=== PATIENT | female | born 1995 | race Caucasian/White ===

== ENCOUNTER 2016-06-15 18:56 | Emergency (ER) | payer SELFPAY ==
[~2016-06-15] VITALS: Ht 162.6 cm; Wt 74.8 kg
[2016-06-15 19:28] VITALS: BP 119/60
[2016-06-15] MEDS ORDERED: NACL 0.9% 500 ML IV ONE ×3 (20:04→23:12)
[2016-06-15] MEDS ORDERED: KETOROLAC 30 MG/ML VIAL IVP ONE ×2 (20:05→23:15)
[2016-06-15] MEDS ORDERED: ONDANSETRON 4 MG/2 ML VIAL IVP ONE ×2 (20:05→23:15)
--- NOTE | 2016-06-15 23:00 | NUR ---
PATIENT PRESENTS TO ED WITH RIGHT FLANK PAIN X 7 DAYS . PT DENIES N/V/D; SKIN IS PINK/WARM/DRY; AAOX4 WITH EVEN AND STEADY GAIT; LUNGS CLEAR BL; HR EVEN AND REGULAR; PT DENIES ANY FEVER, CP, SOB, OR COUGH AT THIS TIME; PATIENT STATES PAIN OF 8/10 AT THIS TIME; VSS; PATIENT POSITIONED FOR COMFORT; HOB ELEVATED; BEDRAILS UP X2; BED DOWN. ER MD MADE AWARE OF PT STATUS.
--- NOTE | 2016-06-15 23:00 | NUR ---
TO ER BED 8
[2016-06-15] MEDS ORDERED: KETOROLAC 30 MG/ML VIAL ONE (23:24)
[2016-06-15] MEDS ORDERED: ONDANSETRON 4 MG/2 ML VIAL ONE (23:25)
[2016-06-15 23:44] LABS: HEMATOCRIT 33.7 % (36-48); HEMOGLOBIN 11.4 g/dL (12.0-16.0); RED BLOOD CELL COUNT(AUTO) 3.99 MIL/uL (4.20-5.40); WHITE BLOOD COUNT (AUTO) 13.1 K/uL (4.5-11.0)
[2016-06-15 23:45] LABS: MEAN CORPUSCULAR HEMOGLOBIN 29 pg (27-31); MEAN CORPUSCULAR HGB CONC 34 g/dL (33-37); MEAN CORPUSCULAR VOLUME 85 fL (80-94); PLATELET COUNT (AUTO) 163 K/uL (140-450); RED CELL DISTRIBUTION WIDTH 12.5 % (11.6-13.7)
--- NOTE | 2016-06-15 23:45 | NUR ---
Patient being evaluated by physician DR DUKES at bedside.
[2016-06-15 23:46] LABS: BAND % (MANUAL) 30 % (0-8); LYMPHOCYTES % (MANUAL) 10 % (20-46); MONOCYTES % (MANUAL) 5 % (5-12); NEUTROPHILS % (MANUAL) 55 (43-65)
[2016-06-15 23:47] LABS: ANION GAP 13.3 (8-16); CALCIUM 8.5 mg/dL (8.5-10.1); CREATININE 0.8 mg/dL (0.6-1.3); POTASSIUM 3.3 mmol/L (3.5-5.1)
[2016-06-15 23:51] LABS: TOTAL BILIRUBIN 1.7 mg/dL (0.0-1.0)
[2016-06-15 23:52] LABS: TOTAL PROTEIN, SERUM 7.1 g/dL (6.4-8.2)
[2016-06-15 23:54] LABS: INR 1.2 (0.8-1.2); PARTIAL THROMBOPLASTIN TIME 34.6 secs (22-35.6); PROTHROMBIN TIME 10.9 secs (10.8-13.4)
[2016-06-16] MEDS ORDERED: LEVOFLOXACIN 750 MG TAB PO ONE
[2016-06-16 00:48] VITALS: BP 127/65
--- NOTE | 2016-06-16 00:48 | NUR ---
Patient discharged with v/s stable. Written and verbal after care instructions given and explained. Patient alert, oriented and verbalized understanding of instructions. Ambulatory with steady gait. All questions addressed prior to discharge. ID band removed. Patient advised to follow up with PMD. Rx of Macrobid, Motrin, Zofran given. Patient educated on indication of medication including possible reaction and side effects. Opportunity to ask questions provided and answered.
== END 2016-06-16 00:48 | disposition home or self-care (01) ==
LOC: MED 18:56
DX: N12 Tubulo-interstitial nephritis, not specified as acute or chronic (principal)
CPT/HCPCS: 36415; 74176; 80053; 81025; 85025; 85610; 85730; 96361; 96374; 96375; 99285; J1885; J2405; J7030; 81002

== ENCOUNTER 2018-05-12 16:19 | Emergency (ER) | payer SELFPAY ==
[~2018-05-12] VITALS: Ht 165.1 cm; Wt 63.5 kg
[2018-05-12 16:26] VITALS: BP 111/76
--- NOTE | 2018-05-12 16:48 | NUR ---
BIB SELF W/ C/O CONTINUOUSLY BLEEDING LACERATION TO TOP OF 3RD DIGIT ON R HAND. STATES SHE WAS CARRYING A PILE OF CLOTHES AND HAD HER USED SHAVING RAZOR WRAPPED UP WITH THEM AND IT CUT HER. DATE OF LAST TETNUS UNKNOWN.
[2018-05-12] MEDS ORDERED: IBUPROFEN 800 MG TAB PO ONE (16:55)
[2018-05-12] MEDS ORDERED: SILVER NITRATE APPLICATOR 1 EA SWAB TP ONE ×2 (17:00→17:07)
--- NOTE | 2018-05-12 17:16 | NUR ---
instructed pt to keep rue elevated above heart level to minimized sanguinesous drainage and throbbing pain---
[2018-05-12 17:24] VITALS: BP 110/75
== END 2018-05-12 17:17 | disposition home or self-care (01) ==
LOC: MED 16:19
DX: S61.212A Laceration without foreign body of right middle finger without damage to nail, initial encounter (principal); W26.8XXA Contact with other sharp object(s), not elsewhere classified, initial encounter; Y93.89 Activity, other specified; Y92.89 Other specified places as the place of occurrence of the external cause; Y99.8 Other external cause status
CPT/HCPCS: 90471; 90715; 99283

== ENCOUNTER 2018-12-18 21:31 | Emergency (ER) | payer MEDICAID ==
[~2018-12-18] VITALS: Ht 162.6 cm; Wt 69.2 kg
[2018-12-18 21:52] VITALS: BP 112/69
[2018-12-18] MEDS ORDERED: NACL 0.9% 1,000 ML IV ONE (22:19)
[2018-12-18] MEDS ORDERED: DICYCLOMINE 20 MG/2 ML VIAL IM ONE (22:20)
[2018-12-18] MEDS ORDERED: KETOROLAC 30 MG/ML VIAL IVP ONE (22:20)
[2018-12-18] MEDS ORDERED: ONDANSETRON 4 MG/2 ML VIAL IVP ONE (22:20)
--- NOTE | 2018-12-18 22:20 | NUR ---
23/F PRESENTED TO ED WITH C/O NVD SINCE LAST NIGHT. PT STATES "I THINK I HAVE FOOD POISONING". LAST MEAL WAS FISH AND SALAD. ALSO C/O 12/06 CRAMPING DIFFUSE ABDOMINAL PAIN. PT STATES SHE CANNOT KEEP ANY FOOD/LIQUID DOWN. ALSO REPORTS "SEEING PINK" ON TOILET PAPER AFTER WIPING X TODAY. ALSO C/O PAINFUL URINATION X TODAY. PT REPORTS DIARRHEA. HYPERACTIVE BOWEL SOUNDS HEARD. ABD SOFT NON TENDER. DENIES TAKING MEDS PRIOR TO ARRIVING TO ED. VSS. WILL CONTINUE TO MONITOR. PMH-- DENIES RX-- DENIES
[2018-12-18 22:50] LABS: BASOPHILS % (AUTO) 0.1 % (0.0-2.0); EOSINOPHILS # (AUTO) 0.1 K/uL (0-0.4); EOSINOPHILS % (AUTO) 0.9 % (0.0-4.0); HEMATOCRIT 39.6 % (36-48); HEMOGLOBIN 12.7 g/dL (12.0-16.0); LYMPHOCYTES % (AUTO) 10.7 % (20.5-51.1); MEAN CORPUSCULAR HEMOGLOBIN 27 pg (27-31); MEAN CORPUSCULAR HGB CONC 32 g/dL (33-37); MEAN CORPUSCULAR VOLUME 82.2 fL (80-94); MONOCYTES # (AUTO) 0.5 K/uL (0.8-1.0); MONOCYTES % (AUTO) 5.4 % (1.7-9.3); NEUTROPHILS % (AUTO) 82.9 % (42.2-75.2); PLATELET COUNT (AUTO) 305 K/uL (140-450); RED BLOOD CELL COUNT(AUTO) 4.82 MIL/uL (4.20-5.40); RED CELL DISTRIBUTION WIDTH 14.6 % (11.6-13.7); WHITE BLOOD COUNT (AUTO) 9.6 K/uL (4.8-10.8)
--- NOTE | 2018-12-18 23:00 | NUR ---
IV ESTABLISHED. TOLERATED WELL. PATENT AND INTACT. FLUIDS INFUSING AT THIS TIME.
[2018-12-18 23:09] LABS: ALBUMIN 4.3 g/dL (3.4-5.0); ANION GAP 16.1 (8-16); CARBON DIOXIDE 24.7 mmol/L (21-32); CREATININE 0.7 mg/dL (0.6-1.3); POTASSIUM 3.8 mmol/L (3.5-5.1)
[2018-12-18 23:53] VITALS: BP 106/63
--- NOTE | 2018-12-18 23:53 | NUR ---
Patient discharged with v/s stable. Written and verbal after care instructions given and explained. Patient alert, oriented and verbalized understanding of instructions. Ambulatory with steady gait. All questions addressed prior to discharge. ID band removed. Patient advised to follow up with PMD. Rx of JAYDEN COREA given. Patient educated on indication of medication including possible reaction and side effects. Opportunity to ask questions provided and answered.
== END 2018-12-18 23:53 | disposition home or self-care (01) ==
LOC: MED 21:31
DX: R11.2 Nausea with vomiting, unspecified (principal); R19.7 Diarrhea, unspecified; R10.10 Upper abdominal pain, unspecified
CPT/HCPCS: 36415; 80053; 81002; 81025; 83690; 85025; 96361; 96372; 96374; 96375; 99283; J0500; J1885; J2405; J7030

== ENCOUNTER 2019-04-19 21:08 | Emergency (ER) | payer MEDICAID ==
[~2019-04-19] VITALS: Ht 162.6 cm; Wt 69.9 kg
[2019-04-19 21:35] VITALS: BP 113/68
--- NOTE | 2019-04-19 21:35 | NUR ---
TO [facility] AMBULATORY
--- NOTE | 2019-04-19 22:01 | NUR ---
C/O SUPRAPUBIC PAIN CRAMPING RADIATING EPIGASTRIC PAIN RADIATING BACK WITH NAUSEA / EMESIS----DENIES DYSURIA
[2019-04-19 23:09] VITALS: BP 112/75
--- NOTE | 2019-04-19 23:09 | NUR ---
Patient discharged with v/s stable. Written and verbal after care instructions given and explained. Patient alert, oriented and verbalized understanding of instructions. Ambulatory with steady gait. All questions addressed prior to discharge. ID band removed. Patient advised to follow up with PMD. Rx of Keflex and Tylenol given. Patient educated on indication of medication including possible reaction and side effects. Opportunity to ask questions provided and answered.
== END 2019-04-19 23:09 | disposition home or self-care (01) ==
LOC: MED 21:08
DX: O23.41 Unspecified infection of urinary tract in pregnancy, first trimester (principal); Z3A.13 13 weeks gestation of pregnancy
CPT/HCPCS: 81002; 81025; 99284

== ENCOUNTER 2019-05-02 21:32 | Emergency (ER) | payer MEDICAID, OTHER ==
[~2019-05-02] VITALS: Ht 162.6 cm; Wt 69.9 kg
[2019-05-02 21:35] VITALS: BP 123/78
--- NOTE | 2019-05-02 21:38 | NUR ---
TO [facility] A/W BED AMBULATORY
--- NOTE | 2019-05-02 22:48 | NUR ---
PATIENT AMB TO [facility]
--- NOTE | 2019-05-02 23:37 | NUR ---
PATIENT SEEN AND DC BY DR. DE LOS SANTOS. NO NURSING CARE RENDERED.
[2019-05-02 23:39] VITALS: BP 123/78
== END 2019-05-02 23:37 | disposition home or self-care (01) ==
LOC: MED 21:32
DX: H66.91 Otitis media, unspecified, right ear (principal)
CPT/HCPCS: 99283

== ENCOUNTER 2019-10-13 03:37 | Emergency (ER) | payer OTHER ==
[~2019-10-13] VITALS: Ht 162.6 cm; Wt 81.6 kg
[2019-10-13 03:37] VITALS: BP 119/73
[~2019-10-13 03:37] MED LIST: NITR100C7 PO
--- NOTE | 2019-10-13 03:44 | NUR ---
PT AMBULATED TO BED 4 WITH STEADY GAIT
--- NOTE | 2019-10-13 03:45 | NUR ---
PT 23 Y/O FEMALE BIB SELF FOR C/O TOOTH ACHE X 1 MONTH. PER PT TOOTH PAIN 10/10 AND IS ON R LOWER BACK MOLARS X 1 MONTH. PER PT UNABLE TO RECIVE TX FOR TOOTH PAIN D/T BEING 38 WEEKS. PREGNENT. NO SKIN BREAK DOWN, REDNESS, OR PURLUENT DRAINGE/PUS NOTED IN GUMS. PT SENSITIVE TO TOUCH IN R LOWER BACK MOLARS. PT STATES SHE HAS BEEN PRESCRIBED PCN AND BEEING TAKING IT PROPHYLACTIC X 2 DAYS. PT HAS NO COMPLICATIONS WITH AT THIS TIME. MEDHX: NONE ALLEGIES: PAULA
[2019-10-13] MEDS ORDERED: LIDOCAINE 2% 1000 MG/50 ML VIAL INJ ONE (04:00)
--- NOTE | 2019-10-13 04:26 | NUR ---
ERMD AT BEDSIDE, INJECTED LIDOCAINE INTO GUMS.
--- NOTE | 2019-10-13 04:30 | NUR ---
PT AMBUALTED TO RESTROOM WITH STEADY GAIT.
--- NOTE | 2019-10-13 04:36 | NUR ---
PT RETURNED TO BED WITH STEADY GAIT.
--- NOTE | 2019-10-13 04:38 | NUR ---
PT STATES TOOTH ACHE PAIN DECREASED FROM 10/10 TO 2/10 AND, "IS TOLERABLE."
[2019-10-13 04:40] VITALS: BP 118/68
--- NOTE | 2019-10-13 04:40 | NUR ---
Patient discharged with v/s stable. Written and verbal after care instructions given and explained. Patient verbalized understanding. Ambulatory with steady gait. All questions addressed prior to discharge. Advised to follow up with PMD.
== END 2019-10-13 04:40 | disposition home or self-care (01) ==
LOC: MED 03:37
DX: K02.9 Dental caries, unspecified (principal); Z79.899 Other long term (current) drug therapy
CPT/HCPCS: 64400; 99284; J2001

== ENCOUNTER 2019-12-15 21:37 | Emergency (ER) | payer OTHER ==
[~2019-12-15] VITALS: Ht 162.6 cm; Wt 74.8 kg
[2019-12-15 21:45] VITALS: BP 119/66
[2019-12-15] MEDS ORDERED: KETOROLAC 60 MG/2 ML VIAL IM ONE (21:55)
[2019-12-15 22:42] VITALS: BP 118/70
== END 2019-12-15 22:42 | disposition home or self-care (01) ==
LOC: MED 21:37
DX: R07.89 Other chest pain (principal); Z79.899 Other long term (current) drug therapy
CPT/HCPCS: 81002; 81025; 93005; 96372; 99283; J1885

== ENCOUNTER 2020-04-14 00:30 | Emergency (ER) | payer OTHER ==
[~2020-04-14] VITALS: Ht 152.4 cm; Wt 78.0 kg
[2020-04-14 00:40] VITALS: BP 126/85
--- NOTE | 2020-04-14 00:51 | NUR ---
PT AMBULATED TO LOBBY TO A/W BED. URINE SPECIMEN PROVIDED.
--- NOTE | 2020-04-14 01:30 | NUR ---
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 BED IS LOCKED AND IN LOWEST POSITION. SIDE RAILSX1. NO ACUTE DISTRESS NOTED. CALL LIGHT WITHIN REACH.
--- NOTE | 2020-04-14 02:00 | NUR ---
PT TAKEN ULTRASOUND VIA W/C
--- NOTE | 2020-04-14 02:00 | NUR ---
Lashonda thompson in [facility] - 04/14/20 at 0216 by MELANY PT TAKEN TO ULTRASOUND
[2020-04-14 02:08] LABS: BASOPHILS # (AUTO) 0.1 K/uL (0.00-0.22); BASOPHILS % (AUTO) 1.7 % (0.0-2.0); EOSINOPHILS # (AUTO) 0.3 K/uL (0-0.4); EOSINOPHILS % (AUTO) 3.6 % (0.0-4.0); HEMATOCRIT 36.8 % (36-48); LYMPHOCYTES # (AUTO) 1.9 K/uL (2.5-16.5); LYMPHOCYTES % (AUTO) 22.2 % (20.5-51.1); MEAN CORPUSCULAR HEMOGLOBIN 26 pg (27-31); MEAN CORPUSCULAR HGB CONC 33 g/dL (33-37); MEAN CORPUSCULAR VOLUME 79.4 fL (80-94); MONOCYTES # (AUTO) 0.6 K/uL (0.8-1.0); MONOCYTES % (AUTO) 7.3 % (1.7-9.3); NEUTROPHILS # (AUTO) 5.6 K/uL (1.8-7.7); NEUTROPHILS % (AUTO) 65.2 % (42.2-75.2); PLATELET COUNT (AUTO) 314 K/uL (140-450); RED BLOOD CELL COUNT(AUTO) 4.64 MIL/uL (4.20-5.40); RED CELL DISTRIBUTION WIDTH 14.8 % (11.6-13.7); WHITE BLOOD COUNT (AUTO) 8.7 K/uL (4.8-10.8)
--- NOTE | 2020-04-14 02:16 | NUR ---
COVERING PRIMARY RN FOR LUNCH RELIEF. SEE COMPLETE ASSESSMENT FOR ADDITIONAL INFORMATION
--- NOTE | 2020-04-14 02:16 | NUR ---
PT RETURN FROM ULTRASOUND TO ER BED 1
[2020-04-14 02:18] LABS: APPEARANCE,URINE CLOUDY (CLEAR); BILIRUBIN,URINE NEGATIVE (NEGATIVE); BLOOD, URINE 3+ (NEGATIVE); COLOR,URINE RED (YELLOW); LEUKOCYTE ESTERASE ,URINE NEGATIVE (NEGATIVE); NITRITE, URINE NEGATIVE (NEGATIVE); UGLUCOSE NEGATIVE (NEGATIVE)
[2020-04-14 02:28] LABS: RBC,URINE TOO NUMEROUS TO COUN /HPF (0-5); WBC,URINE 0-5 /HPF (0-5)
[2020-04-14 02:30] LABS: PROTHROMBIN TIME 9.6 secs (10.8-13.4)
[2020-04-14 03:30] VITALS: BP 129/87
--- NOTE | 2020-04-14 03:45 | NUR ---
Pelvic exam performed by DR GARCIA with EBONIE LORENZO at bedside for entire examination. Patient tolerated procedure WELL. Patient assisted to position of comfort after examination.
--- NOTE | 2020-04-14 03:45 | NUR ---
Dr. Butcher examining patient.
--- NOTE | 2020-04-14 03:55 | NUR ---
WET MOUNT COLLECTED AND GIVEN TO TITLE INSPECTOR
[2020-04-14] MEDS ORDERED: HYDROcodone/APAP 5/325 MG 1 TAB TAB PO ONE (04:05)
--- NOTE | 2020-04-14 05:13 | NUR ---
Patient discharged with v/s stable. Written and verbal after care instructions given and explained. Patient alert, oriented and verbalized understanding of instructions. Ambulatory with steady gait. All questions addressed prior to discharge. ID band removed. Patient advised to follow up with PMD. Rx of ZOFRAN AND FLAGYL given. Patient educated on indication of medication including possible reaction and side effects. Opportunity to ask questions provided and answered.
== END 2020-04-14 05:13 | disposition home or self-care (01) ==
LOC: MED 00:30
DX: O03.9 Complete or unspecified spontaneous abortion without complication (principal); Z79.899 Other long term (current) drug therapy
CPT/HCPCS: 36415; 76830; 81001; 84702; 85025; 85610; 85730; 86900; 86901; 87210; 99284

== ENCOUNTER 2020-06-13 20:27 | Emergency (ER) | payer OTHER ==
[~2020-06-13] VITALS: Ht 162.6 cm; Wt 76.2 kg
[2020-06-13 20:35] VITALS: BP 129/79
[2020-06-13] MEDS ORDERED: NACL 0.9% 1,000 ML IV SCH (22:00)
[2020-06-13] MEDS ORDERED: ONDANSETRON 4 MG/2 ML VIAL IVP ONE (22:00)
[2020-06-13 22:22] LABS: BASOPHILS # (AUTO) 0.1 K/uL (0.00-0.22); EOSINOPHILS # (AUTO) 0.4 K/uL (0-0.4); EOSINOPHILS % (AUTO) 4.1 % (0.0-4.0); HEMATOCRIT 36.1 % (36-48); HEMOGLOBIN 11.9 g/dL (12.0-16.0); LYMPHOCYTES # (AUTO) 2.5 K/uL (2.5-16.5); LYMPHOCYTES % (AUTO) 26.3 % (20.5-51.1); MEAN CORPUSCULAR HEMOGLOBIN 26 pg (27-31); MEAN CORPUSCULAR HGB CONC 33 g/dL (33-37); MEAN CORPUSCULAR VOLUME 77.9 fL (80-94); MONOCYTES # (AUTO) 0.8 K/uL (0.8-1.0); MONOCYTES % (AUTO) 8.6 % (1.7-9.3); NEUTROPHILS # (AUTO) 5.7 K/uL (1.8-7.7); PLATELET COUNT (AUTO) 314 K/uL (140-450); RED BLOOD CELL COUNT(AUTO) 4.64 MIL/uL (4.20-5.40); RED CELL DISTRIBUTION WIDTH 14.7 % (11.6-13.7); WHITE BLOOD COUNT (AUTO) 9.5 K/uL (4.8-10.8)
[2020-06-13 22:37] LABS: ALBUMIN 4.3 g/dL (3.4-5.0); ANION GAP 11.3 (8-16); CARBON DIOXIDE 26.6 mmol/L (21-32); CREATININE 0.7 mg/dL (0.6-1.3); POTASSIUM 3.9 mmol/L (3.5-5.1); TOTAL BILIRUBIN 0.2 mg/dL (0.0-1.0)
[2020-06-13] MEDS ORDERED: HYDROcodone/APAP 5/325 MG 1 TAB TAB PO ONE (23:15)
[2020-06-13 23:37] LABS: APPEARANCE,URINE CLEAR (CLEAR); BILIRUBIN,URINE NEGATIVE (NEGATIVE); BLOOD, URINE NEGATIVE (NEGATIVE); COLOR,URINE YELLOW (YELLOW); LEUKOCYTE ESTERASE ,URINE NEGATIVE (NEGATIVE); NITRITE, URINE NEGATIVE (NEGATIVE); PH,URINE 6.5 (5.0-9.0); UGLUCOSE NEGATIVE (NEGATIVE)
[2020-06-14] MEDS ORDERED: ONDA-24 SL (00:22)
[2020-06-14] MEDS ORDERED: DOCU-299 PO (00:28)
[2020-06-14] MEDS ORDERED: HYDR-5080 PO (00:28)
[2020-06-14 00:48] VITALS: BP 120/77
== END 2020-06-14 00:48 | disposition home or self-care (01) ==
LOC: MED 20:27
DX: R55 Syncope and collapse (principal); R11.2 Nausea with vomiting, unspecified; Z79.899 Other long term (current) drug therapy
CPT/HCPCS: 36415; 71045; 80053; 81003; 82550; 83690; 84484; 84702; 85025; 93005; 96361; 96374; 99285; J2405; J7030

== ENCOUNTER 2020-06-30 14:45 | Emergency (ER) | payer OTHER ==
[~2020-06-30 14:45] MED LIST changes: +DOCU-299 PO; +HYDR-5080 PO; +ONDA-24 SL
--- NOTE | 2020-06-30 15:37 | NUR ---
PATIENT LEFT WITHOUT BEING SEEN BY DR. PATINO. NO FURTHER CARE PROVIDED FOR PATIENT.
== END 2020-06-30 15:37 | disposition left against medical advice (07) ==
LOC: MED 14:45
DX: K13.79 Other lesions of oral mucosa (principal); Z53.21 Procedure and treatment not carried out due to patient leaving prior to being seen by health care provider

== ENCOUNTER 2021-04-28 18:52 | Emergency (ER) | payer OTHER ==
[~2021-04-28] VITALS: Ht 162.6 cm; Wt 81.6 kg
[~2021-04-28 18:52] MED LIST changes: +ONDA-188 SL; -ONDA-24 SL
[2021-04-28 19:37] VITALS: BP 124/65
--- NOTE | 2021-04-28 22:00 | NUR ---
Assumed patient care, here for fever. Pt examined from lobby by ED MD. No orders given
--- NOTE | 2021-04-28 23:00 | NUR ---
Cleared for dc with Dr. Bess, instructions reinforced. VS stable at this time
== END 2021-04-28 22:15 | disposition home or self-care (01) ==
LOC: MED 18:52
DX: J06.9 Acute upper respiratory infection, unspecified (principal)
CPT/HCPCS: 99281

== ENCOUNTER 2021-05-17 12:36 | Emergency (ER) | payer OTHER ==
[~2021-05-17] VITALS: Ht 162.6 cm; Wt 86.6 kg
[2021-05-17 12:42] VITALS: BP 136/86
--- NOTE | 2021-05-17 12:48 | NUR ---
Patient ambulated with steady gait to bed 4.
[2021-05-17] MEDS ORDERED: ATA25 PO (13:14)
--- NOTE | 2021-05-17 13:15 | NUR ---
25 Y/O F AMBULATED TO BED 4 WITH STEADY GAIT, C/O PANIC ATTACK WHILE AT WORK FOR NO REASON STATES HER BODY BECAME NUMB, NO STRESS, NO ARGUMENT, IT JUST HAPPENED WHEN SHE BENT OVER AND STOOD BACK UP QUICKLY. MEDHX: DENIES ALLERGIES: NKDA
[2021-05-17 13:30] VITALS: BP 136/86
== END 2021-05-17 13:30 | disposition home or self-care (01) ==
LOC: MED 12:36
DX: F41.9 Anxiety disorder, unspecified (principal); R07.9 Chest pain, unspecified; R06.02 Shortness of breath; Z79.899 Other long term (current) drug therapy
CPT/HCPCS: 99283

== ENCOUNTER 2021-06-25 10:39 | Emergency (ER) | payer OTHER ==
[~2021-06-25] VITALS: Ht 162.6 cm; Wt 84.8 kg
[~2021-06-25 10:39] MED LIST changes: +ATA25 PO
[2021-06-25 10:47] VITALS: BP 126/74
--- NOTE | 2021-06-25 10:48 | NUR ---
PT AMBULATED TO BED STEADY GAIT
--- NOTE | 2021-06-25 11:12 | NUR ---
25 Y/O F C/O ABD PAIN XYESTERDAY. PT STATES ATE LATVIAN FOOD, FELT BLOATED AND STARTED HAVING NAUSEA, VOMITING, DIARRHEA. PT STATED PAIN IS CRAMPING LIKE. ADBOMEN IS SOFT AND TENDER TO TOUCH. PT IS CURRENTLY GUARDING AT THIS TIME. PER PATIENT SHE IS UNABLE TO KEEP ANY FOOD/WATER DOWN. INTERMITTNENT / PAIN MEDHX: DENIES NKA
--- NOTE | 2021-06-25 12:39 | NUR ---
DR. BETH BEDSIDE EVALUATING PT
[2021-06-25] MEDS ORDERED: ONDANSETRON 4 MG/2 ML VIAL IVP ONE (12:55)
[2021-06-25] MEDS ORDERED: NACL 0.9% 1,000 ML IV ONE (12:55)
[2021-06-25 13:21] LABS: APPEARANCE,URINE SL CLOUDY (CLEAR); BILIRUBIN,URINE NEGATIVE (NEGATIVE); BLOOD, URINE NEGATIVE (NEGATIVE); COLOR,URINE YELLOW (YELLOW); LEUKOCYTE ESTERASE ,URINE TRACE (NEGATIVE); NITRITE, URINE NEGATIVE (NEGATIVE); UGLUCOSE NEGATIVE (NEGATIVE)
--- NOTE | 2021-06-25 13:21 | NUR ---
Patient appears to be resting comfortably in bed. Vital Signs within normal limits. Respirations even and unlabored.
[2021-06-25 13:43] LABS: CALCIUM OXALATE CRYSTALS,UR None Seen /HPF (None Seen); COARSE GRANULAR CASTS,URINE None Seen /LPF (None Seen); FINE GRANULAR CASTS,URINE None Seen /LPF (None Seen); HYALINE CASTS, URINE None Seen /LPF (None Seen); OTHER CASTS, URINE None Seen /LPF (None Seen); OTHER CRYSTALS,URINE None Seen /HPF (None Seen); RBC,URINE NONE SEEN /HPF (0-5); RED BLOOD CELL CASTS,URINE None Seen /LPF (None Seen); TRICHOMONAS,URINE None Seen /HPF (None Seen); TRIPLE PHOSPHATE CRYSTAL,UR None Seen /HPF (None Seen); URIC ACID CRYSTALS,URINE None Seen /HPF (None Seen); URINE AMORPHOUS URATE None Seen /HPF (None Seen); WAXY CASTS,URINE None Seen /LPF (None Seen); WBC,URINE 0-5 /HPF (0-5); YEAST,URINE None Seen /HPF (None Seen)
[2021-06-25 14:35] VITALS: BP 111/75
== END 2021-06-25 14:20 | disposition home or self-care (01) ==
LOC: MED 10:39
DX: K52.9 Noninfective gastroenteritis and colitis, unspecified (principal)
CPT/HCPCS: 81001; 81025; 96361; 96374; 99283; J2405; J7030

== ENCOUNTER 2021-08-26 08:40 | Emergency (ER) | payer OTHER ==
[~2021-08-26] VITALS: Ht 162.6 cm; Wt 87.2 kg
[2021-08-26 08:41] VITALS: BP 125/62
--- NOTE | 2021-08-26 08:55 | NUR ---
walked in c/o sore throat onset 1 week accompanied by fever and productive cough with green phlegm. denies cp or sob. afebrile at bedside. cov vaccine x3, denies known contact with covid. denies hx covid. aaox4 ambulatory, vitals stable. covid, strep, and throat culture collected.
[2021-08-26] MEDS ORDERED: PRED20TA5 PO (10:24)
[2021-08-26] MEDS ORDERED: IBUP-2213 PO (10:24)
--- NOTE | 2021-08-26 10:30 | NUR ---
Patient discharged with v/s stable. Written and verbal after care instructions given and explained. Patient alert, oriented and verbalized understanding of instructions. Ambulatory with steady gait. All questions addressed prior to discharge. ID band removed. Patient advised to follow up with PMD. Rx of prednisone and ibuprofen given. Patient educated on indication of medication including possible reaction and side effects. Opportunity to ask questions provided and answered.
== END 2021-08-26 10:30 | disposition home or self-care (01) ==
LOC: MED 08:40
DX: J02.9 Acute pharyngitis, unspecified (principal); Z20.822 Contact with and (suspected) exposure to COVID-19; Z79.899 Other long term (current) drug therapy
CPT/HCPCS: 87081; 99283

== ENCOUNTER 2021-09-17 22:41 | Emergency (ER) | payer OTHER ==
[~2021-09-17 22:41] MED LIST changes: +IBUP-2213 PO; +PRED20TA5 PO
--- NOTE | 2021-09-17 23:06 | NUR ---
CALLED TO TRIAGE, NO ANSWER
--- NOTE | 2021-09-17 23:30 | NUR ---
CALLED TO TRIAGE, NO ANSWER
--- NOTE | 2021-09-17 23:45 | NUR ---
CALLED TO TRIAGE, NO ANSWER. PT LWBS
== END 2021-09-17 23:06 | disposition left against medical advice (07) ==
LOC: MED 22:41
DX: R42 Dizziness and giddiness (principal); Z77.110 Contact with and (suspected) exposure to air pollution; Z53.21 Procedure and treatment not carried out due to patient leaving prior to being seen by health care provider

== ENCOUNTER 2021-09-18 01:17 | Emergency (ER) | payer OTHER ==
[~2021-09-18] VITALS: Ht 162.6 cm; Wt 83.9 kg
--- NOTE | 2021-09-18 01:23 | NUR ---
PT TAKEN TO BED 1 Addendum: 09/18/21 at 0125 by [facility] PT TAKEN TO BED 4
[2021-09-18 01:25] VITALS: BP 123/80
--- NOTE | 2021-09-18 01:25 | NUR ---
PT IN BED 4
--- NOTE | 2021-09-18 01:31 | NUR ---
25 YO F BIBS W C/O CARBON MONOXIDE INHALATION AROUNG 830PM. 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 02 98% PMH: DENIES MEDS: DENIES
--- NOTE | 2021-09-18 01:40 | NUR ---
RT AT BEDSIDE DRAWING ABG
--- NOTE | 2021-09-18 02:36 | NUR ---
Patient appears to be resting comfortably in bed. Vital Signs within normal limits. Respirations even and unlabored.
--- NOTE | 2021-09-18 03:23 | NUR ---
ERMD EXAMINING PT
[2021-09-18 03:48] VITALS: BP 123/80
== END 2021-09-18 03:48 | disposition home or self-care (01) ==
LOC: MED 01:17
DX: R51.9 Headache, unspecified (principal); M79.671 Pain in right foot; M79.672 Pain in left foot; Z79.899 Other long term (current) drug therapy
CPT/HCPCS: 36600; 82803; 99283

== ENCOUNTER 2022-05-21 23:36 | Emergency (ER) | payer OTHER ==
[~2022-05-21] VITALS: Ht 162.6 cm; Wt 85.4 kg
[2022-05-21 23:40] VITALS: BP 143/93
--- NOTE | 2022-05-21 23:43 | NUR ---
TO [facility] A/W BED AMBULATORY
[2022-05-22] MEDS ORDERED: OFLO5SOL2 LEFT EYE (00:37)
--- NOTE | 2022-05-22 00:40 | NUR ---
Patient discharged with v/s stable. Written and verbal after care instructions given and explained. Patient alert, oriented and verbalized understanding of instructions. Ambulatory with steady gait. All questions addressed prior to discharge. ID band removed. Patient advised to follow up with PMD. Rx of OFLOXACIN given. Patient educated on indication of medication including possible reaction and side effects. Opportunity to ask questions provided and answered.
== END 2022-05-22 00:40 | disposition home or self-care (01) ==
LOC: MED 23:36
DX: O26.891 Other specified pregnancy related conditions, first trimester (principal); H11.32 Conjunctival hemorrhage, left eye; H10.89 Other conjunctivitis; B96.89 Other specified bacterial agents as the cause of diseases classified elsewhere; Z79.899 Other long term (current) drug therapy; Z79.1 Long term (current) use of non-steroidal anti-inflammatories (NSAID); Z79.2 Long term (current) use of antibiotics; Z79.891 Long term (current) use of opiate analgesic
CPT/HCPCS: 99283

== ENCOUNTER 2022-10-08 23:10 | Emergency (ER) | payer OTHER ==
[~2022-10-08] VITALS: Ht 162.6 cm; Wt 83.9 kg
[~2022-10-08 23:10] MED LIST changes: +OFLO5DRO2 LEFT EYE
[2022-10-08 23:41] VITALS: BP 109/61; PULSE 88; RESP 16; TEMP 97.2; O2SAT 99
[2022-10-09] MEDS ORDERED: KETOROLAC 15 MG/ML VIAL IM ONE (03:55)
[2022-10-09] MEDS ORDERED: DEXAMETHASONE 4 MG TAB PO ONE (03:55)
[2022-10-09] MEDS ORDERED: ACETAMINOPHEN EXTRA STRENGTH 500 MG TAB PO ONE (03:55)
[2022-10-09] MEDS ORDERED: KETOROLAC 30 MG/ML VIAL ONE (04:20)
[2022-10-09 05:20] VITALS: BP 109/61; PULSE 82; RESP 18; TEMP 98.2; O2SAT 100
== END 2022-10-09 05:20 | disposition home or self-care (01) ==
LOC: MED 23:10
DX: J02.9 Acute pharyngitis, unspecified (principal); Z79.899 Other long term (current) drug therapy
CPT/HCPCS: 87081; 87426; 96372; 99283; J1885